=== PATIENT | female | born 1990 | race Caucasian/White ===

== ENCOUNTER 2017-12-30 20:21 | Emergency (ER) | payer OTHER ==
[2017-12-30] MEDS ORDERED: Lidocaine 1% PF 5 ML VIAL ONE (20:36)
[2017-12-30] MEDS ORDERED: Bupivacaine 0.5% 10 ML VIAL ONE (20:36)
[2017-12-30] MEDS ORDERED: Adacel (T-DAP) 0.5 ML VIAL ONE (20:40)
[2017-12-30] MEDS ORDERED: Bacitracin Zinc 1 Packet ONE (21:17)
== END 2017-12-30 21:23 | disposition home or self-care (01) ==
LOC: SCSER 20:21
DX: S61.216A Laceration without foreign body of right little finger without damage to nail, initial encounter (principal); Z23 Encounter for immunization; F17.210 Nicotine dependence, cigarettes, uncomplicated; W25.XXXA Contact with sharp glass, initial encounter
CPT/HCPCS: 12002; 90471; 90715; J2001; J3490